=== PATIENT | male | born 1940 | race Caucasian/White ===

== ENCOUNTER 2023-02-04 17:08 | Emergency (ER) | payer MEDICARE, SELFPAY ==
[2023-02-04 17:13] VITALS: BP 136/74; PULSE 69; RESP 16; TEMP 37.1; O2SAT 99
--- NOTE | 2023-02-04 18:12 | DI.RAD_ITS ---
Exam(s) XR KNEE RT 3V AP,LAT,RICH EXAM: XR KNEE RT 3V AP,LAT,RICH CLINICAL HISTORY: R knee unstable. TECHNIQUE: 2D digital imaging was performed. COMPARISON: No exams were available for comparison FINDINGS: 3 views No evidence of fracture. Small amount of increased joint fluid. Minimal of any significant degenera tive changes. Bone density normal. No osseous lesions evident. Small benign osteo chondroma in the proximal lateral diaphysis of the tibia. IMPRESSION: No acute osseous findings. Small joint effusion. DATA REPOSITORY: RADIATION DOSE DELIVERED:
--- NOTE | 2023-02-04 18:52 | ED.GENADUL_ITS ---
Discharge Plan Disposition Patient Disposition: Home Condition: Stable Discharge Details Clinical Impression: Internal derangement of knee Primary Care Provider: Kareen Evans ED Provider: Raquel Melvin Home Meds and New Rx's Prescriptions: Continued aspirin [Adult Low Dose Aspirin] 81 mg tablet,delayed release (DR/EC) 81 mg PO DAILY simvastatin 40 mg tablet 40 mg PO DAILY tamsulosin [Flomax] 0.4 mg capsule 0.4 mg PO DAILY minoxidil-betamethasone 5-0.05 % solution topical diphenoxylate-atropine [Lomotil] 2.5-0.025 mg tablet 1 tab PO DAILY Discharge Instructions Instructions: Knee Sprain (DC) Additional Instructions: use crutches or walker for toe touch weight bearing as tolerated. use ibuprofen 600 mg 4 times daily with food for 5 days then as needed for pain add acetaminophen 650 mg 4 times daily for breakthrough pain ice rest and elevation. wear richard wrap for compression and support. Referrals: Andrey Mazariegos MD [ [facility] STAFF PHYSICIAN] - Kareen Evans NP [Primary Care Provider] - Medical Decision Making Patient with several weeks of right knee pain now with injury to the right knee from a mechanical fall on uneven ground. X-rays obtained and shows no acute bony fracture or dislocation. Knee appears stable on examination. An Richard wrap is applied. He is given ibuprofen 600 mg orally with an ice bag. He will be discharged home for outpatient follow-up with orthopedics as he was having pain with his knee for several weeks prior to this injury. He is given instructions for toe-touch weightbearing as tolerated only with crutches or walker. He is safe for discharge to home HPI General Mode of arrival: wheelchair . Date/Time Provider Initiated Documentation: 02/04/23 17:19 . Limitations to Documentation: no limitations . Information obtained by: patient . HPI Narrative: This is an 82-year-old male patient with no significant past medical history who does report for several weeks he has been experiencing right knee pain. He denies any specific injury to it but states it has been increasing pain with ambulation. Today while he was fishing and stepping down on an uneven surface he did have a unsteadiness on that right foot when weightbearing and did fall down to the ground. There was no other injuries but he does report significant knee pain especially with weightbearing. There is no obvious deformity. He did not take any medication prior to arrival. He did not strike his head. He has isolated right lateral knee pain. Related Data Home Medications Medication Instructions Recorded Confirmed aspirin 81 mg tablet,delayed 81 mg PO DAILY 02/04/23 02/04/23 release (Adult Low Dose Aspirin) diphenoxylate-atropine 2.5 1 tab PO DAILY 02/04/23 02/04/23 mg-0.025 mg tablet (Lomotil) minoxidil 5 %-betamethasone 0.05 % ml topical 02/04/23 topical solution simvastatin 40 mg tablet 40 mg PO DAILY 02/04/23 02/04/23 tamsulosin 0.4 mg capsule (Flomax) 0.4 mg PO DAILY 02/04/23 02/04/23 Allergies Allergy/AdvReac Type Severity Reaction Status Date / Time No Known Allergies Allergy Unverified 02/04/23 17:18 General Stated Complaint: Orthopedic ENRRIQUE: 3 Review of Systems All systems reviewed & are unremarkable except as noted in HPI and below PFSH All Active Problems (Updated 02/04/23 @ 18:55 by Raquel Melvin NP) Internal derangement of knee (Acute) Social History (Updated 12/24/22 @ 11:27 by Adia Arrieta) Smoking/Tobacco Use Status: Never Second Hand Exposure: No Smoking risk assessment performed?: Yes Alcohol Intake: current Details: monthly or less Drug use: Never Adopted: No Caregiver/Support person: Yes Foster care: No Household members: spouse and children Housing: apartment Number of Children: 3 number of grandchildren: 7 Communication Needs: Hard of Hearing and Corrective Lenses Education Level: high school Do you need help understanding health information?: Rarely Pets and animals: No Sexually active: Yes Do you think of yourself as: straight/heterosexual Current gender identity: male What is your relationship status?: How often do you talk on the phone with friends or family?: three or more times per week How often do you get together with friends or relatives?: three or more times per week Do you belong to any clubs or organized social groups?: no Panel score (0-1 are the most socially isolated patients): 2 Mariia/Anabaptism: Gnosticist Special mariia needs: No Seatbelt use: always Helmet use: No Drive intox or ride w/intox lokie driver: No Exam Const General: cooperative, healthy appearing, comfortable and no acute distress Nutritional Appearance: average body habitus Orientation: alert, awake and oriented x3 Skin General skin exam: no rashes or lesions noted Neuro General: patient alert, patient awake and patient oriented x3 Extrem Right lower extremity: knee Details: tenderness Location: of the lateral joint line, swelling Location: of the infrapatellar area and knee ligament exam normal Details: anterior drawer test normal, valgus stress test normal and varus stress test normal Course Vital Signs Vital signs: Vital Signs Temperature 37.1 C 02/04/23 17:13 Pulse 69 02/04/23 17:13 Respiratory Rate 16 02/04/23 17:13 Blood Pressure 136/74 02/04/23 17:13 Pulse Oximetry 99 02/04/23 17:13 Temperature 37.1 C 02/04/23 17:13 Temperature Source Tympanic 02/04/23 17:13 Pulse 69 02/04/23 17:13 Respiratory Rate 16 02/04/23 17:13 Respiratory Effort Normal, Non-Labored 02/04/23 17:17 Blood Pressure 136/74 02/04/23 17:13 Blood Pressure Position Supine 02/04/23 17:13 Pulse Oximetry 99 02/04/23 17:13 Pain Level 8 02/04/23 17:13
[2023-02-04] MEDS: Ibuprofen 600 MG TAB PO (19:10)
== END 2023-02-04 19:17 | disposition home or self-care (01) ==
PROVIDERS: Emergency Provider Nurse Practitioner Acute Care; PCP Nurse Practitioner
DX: M23.91 Unspecified internal derangement of right knee (principal); Z79.82 Long term (current) use of aspirin; W18.30XA Fall on same level, unspecified, initial encounter; Y93.01 Activity, walking, marching and hiking; Y92.89 Other specified places as the place of occurrence of the external cause
CPT/HCPCS: 73562; 99283

== ENCOUNTER → 2023-03-01 14:30 | Outpatient (BNVA) | payer MEDICARE, SELFPAY | PROVIDERS: PCP Nurse Practitioner; Referring Provider Nurse Practitioner | DX: M23.91 Unspecified internal derangement of right knee (principal) | CPT/HCPCS: 99213 ==

== ENCOUNTER → 2023-03-18 02:18 | Outpatient (CLI) | payer MEDICARE, SELFPAY ==
--- NOTE | 2023-03-18 06:45 | DI.CT_ITS ---
Exam(s) CT ABDOMEN PELVIS WO/W EXAM: CT ABDOMEN PELVIS WO/W CLINICAL HISTORY: ? mass or filling defect Fla CT,abnl ct of bladder,r93.41. TECHNIQUE: Imaging Protocol: Axial computed tomography images with coronal and sagittal reformatted images were created and reviewed. Images were performed from the lung bases through the ischial tuberosities before IV contrast and fol lowing IV contrast using a 70 second delay, followed by 7 minutes delayed images. CONTRAST MATERIAL: Intravenous: Omnipaque 350 Contrast volume:100 cc Oral: no COMPARISON: No exams were available for comparison. An examination from [place] was requested but n ever received. Report is available. FINDINGS: ABDOMEN: Lung Bases: Normal interstitial changes. Liver: Normal density. No measurable mass. Gallbladder and biliary tract: Gallstone. Pancreas: Normal density, no abnormal calcifications or inflammatory process. Spleen: Normal. Kidneys: Normal size, contour and axis. No radiodense stones or obstructive uropathy. No suspicious m asses seen. Adrenal glands: No masses seen. Lymph nodes: Within normal limits. Vasculature: Abdominal aorta non-dilated. Atherosclerotic changes. Soft tissues: Small fatty containing umbilical hernia. Right inguinal hernia. The inferolateral cor ner of the bladder extends into the hernia. PELVIS: Bladder: No gross wall thickening. No evidence of a mass.No evidence of calculi. A portion of the r ight side of the bladder extends into the right inguinal hernia. Bowel: No obstruction or bowel wall thickening. Large quantity of stool. Diverticulum off posterior gastric fundus. Peritoneal cavity: No ascites, collection or mesenteric inflammatory response. Soft tissues: Bones: No compression fractures. Prominent endplate osteophytes in the spine. Reproductive organs: Prostate slightly enlarged.. IMPRESSION: No suspicious renal mass. No visible bladder mass. Right inguinal hernia which contains a portion of the inferior right side of the bladder. RADIATION DOSE DELIVERED: Total DLP DATA REPOSITORY: All CT scans at this facility are submitted to the National Radiology Data Registry (NRDR) Dose Index Registry (DIR) with the [employer] ([employer]). RADIATION OPTIMIZATION: All CT scans at this facility use at least one of these dose optimization te chniques: automated exposure control; mA and/or kV adjustment per patient size (includes targeted exa ms where dose is matched to clinical indication); or iterative reconstruction.
[2023-03-18 08:48] LABS: CREATININE 1.1 mg/dL (0.70-1.30); Estimated GFR 67.86 (mL/min/1.73m2)
[2023-03-18] MEDS: Omnipaque 350 MG/ML 500 ML BTL-Imaging package IJ (08:58)
[2023-03-18] MEDS: Normal Saline - Diluent 50 ML VIAL IJ ×2 (08:59→09:00)
== END ==
PROVIDERS: PCP Nurse Practitioner; Visit Provider Nurse Practitioner
DX: K40.90 Unilateral inguinal hernia, without obstruction or gangrene, not specified as recurrent (principal)
CPT/HCPCS: 74178; 82565

== ENCOUNTER → 2023-06-07 12:46 | Outpatient (BNVA) | payer MEDICARE, SELFPAY | PROVIDERS: PCP Nurse Practitioner; Referring Provider Nurse Practitioner; Visit Provider Surgery | DX: K40.90 Unilateral inguinal hernia, without obstruction or gangrene, not specified as recurrent (principal) | CPT/HCPCS: 99214 ==

== ENCOUNTER 2024-03-22 02:34 | Outpatient (CLI) | payer MEDICARE, SELFPAY ==
[2024-03-22 09:38] LABS: Abs Immature Grans 0.05 10^3/uL (0.0-0.06); Absolute Basophil Count 0.09 10^3/uL (0.0-0.2); Absolute Eosinophil Count 0.27 10^3/uL (0.0-0.7); Absolute Lymphocyte Count 2.07 10^3/uL (1.2-3.4); Absolute Monocyte Count 0.77 10^3/uL (0.1-0.8); Absolute Neutrophil Count 6.57 10^3/uL (1.2-6.7); Basophils % 0.9 %; Eosinophils % 2.7 %; HCT 48.7 % (40.0-50.0); HGB 15.6 g/dL (13.5-17.5); Immature Grans % 0.5 %; Lymphocytes % 21.1 %; MCH 28.4 pg (27.0-33.0); MCV 89 fL (80-95); Monocytes % 7.8 %; Platelet Count 155 10^3/uL (130-400); RDW 13.2 % (11.8-14.1); RDW-SD 42.9 fL; WBC 9.82 10^3/uL (4.4-10.8)
[2024-03-22 09:47] LABS: Hemoglobin A1C 5.9 % (<5.7)
[2024-03-22 10:08] LABS: ALT 25 U/L (16-63); AST 21 U/L (15-37); Alkaline Phosphatase 89 U/L (46-116); Anion Gap 4.8 mmol/L (3-11); BUN 13 mg/dL (7-18); Bilirubin, Total 1.23 mg/dL (0.2-1.0); CO2 30.2 mmol/L (21.0-32.0); CREATININE 1.2 mg/dL (0.70-1.30); Calcium 9.4 mg/dL (8.5-10.1); Calculated LDL 52 mg/dL (<100); Chloride 107 mmol/L (98-107); Cholesterol 118 mg/dL (<200); Estimated GFR 60.75 (mL/min/1.73m2); Glucose 106 mg/dL (74-106); HDL Cholesterol 53 mg/dL (40-60); Potassium 4.4 mmol/L (3.5-5.1); Sodium 142 mmol/L (136-145); Total Protein 7.5 g/dL (6.4-8.2); Triglyceride 65 mg/dL (<150)
== END 2024-03-22 02:35 | disposition home or self-care (01) ==
LOC: LBO 02:34
PROVIDERS: PCP Nurse Practitioner; Referring Provider Nurse Practitioner; Visit Provider Nurse Practitioner
DX: E78.5 Hyperlipidemia, unspecified (principal); R73.03 Prediabetes
CPT/HCPCS: 36415; 80053; 80061; 83036; 85025

== ENCOUNTER 2024-07-31 14:44 | Outpatient (CLI) | payer MEDICARE, SELFPAY ==
--- NOTE | 2024-07-31 14:30 | RT.EKG_ITS ---
APPROVED REPORT Exam: Resting ECG Reason for Exam: ED Patient Location: O HR:63 bpm ECG Measurements Heart Rate 63 AXIS NE 199 P 53 QRSd 100 QRS -37 QT 416 T 64 QTc 426 Conclusion Sinus rhythm...normal P axis, V-rate 50- 99 Probable left atrial enlargement...P >50mS, <-0.10mV V1 Left anterior fascicular block
== END 2024-07-31 14:45 | disposition home or self-care (01) ==
LOC: DI.KIM 14:44
PROVIDERS: PCP Nurse Practitioner; Visit Provider Nurse Practitioner
DX: N52.9 Male erectile dysfunction, unspecified (principal); I51.7 Cardiomegaly; I44.4 Left anterior fascicular block
CPT/HCPCS: 93010

== ENCOUNTER 2024-11-13 10:21 | Outpatient (CLI) | payer MEDICARE, SELFPAY ==
--- NOTE | 2024-11-13 09:30 | DI.RAD_ITS ---
Exam(s) XR CHEST 2V PA LATERAL EXAM: XR CHEST 2V PA LATERAL CLINICAL HISTORY: 2 weeks of cough, crackles in RLL, R05.9 TECHNIQUE: 2D digital imaging was performed of the chest. Three images were obtained. PA and lateral views were obtained. COMPARISON: CT CT ABDOMEN PELVIS WO/W from 03/18/2023 FINDINGS: MEDIASTINUM: Normal. HEART: Normal. PULMONARY VASCULATURE: Normal. LUNGS: The lungs are hyperinflated with flattened diaphragms suggesting underlying COPD. There are interstitial fibrotic changes in the lung bases. These can be seen on the CT scan of the abdomen and pelvis from 03/18/2023. No focal consolidating infiltrates are seen. PLEURAL SPACE: No pleural effusion or pneumothorax. BONE:Within normal limits for the patient's age. OTHER FINDINGS:Normal. IMPRESSION: 1. No focal consolidating infiltrates. 2. COPD and bilateral basilar pulmonary fibrosis. DATA REPOSITORY: RADIATION DOSE DELIVERED:
== END 2024-11-13 10:41 ==
LOC: DI 10:22
PROVIDERS: PCP Nurse Practitioner; Visit Provider Family Medicine
DX: R05.9 Cough, unspecified (principal)
CPT/HCPCS: 71046